=== PATIENT | male | born 1990 | race Caucasian/White ===

== ENCOUNTER 2017-12-06 14:18 | Emergency (ER) | payer OTHER ==
[~2017-12-06] VITALS: Ht 175.3 cm; Wt 122.5 kg
[2017-12-06] MEDS ORDERED: ULTRAM 50MG TAB50 MG PO (15:30)
[2017-12-06] MEDS ORDERED: CLOTRIMAZOLE10 GM TOP (15:30)
== END 2017-12-06 15:30 | disposition home or self-care (01) ==
LOC: ER 14:18
DX: S09.8XXA Other specified injuries of head, initial encounter (principal); B35.3 Tinea pedis; F17.210 Nicotine dependence, cigarettes, uncomplicated; W01.0XXA Fall on same level from slipping, tripping and stumbling without subsequent striking against object, initial encounter; Y93.89 Activity, other specified; Y92.89 Other specified places as the place of occurrence of the external cause; Y99.8 Other external cause status

== ENCOUNTER 2018-10-10 10:32 | Emergency (ER) | payer OTHER ==
[~2018-10-10] VITALS: Ht 175.3 cm; Wt 113.4 kg
[~2018-10-10 10:32] MED LIST: CLOTRIMAZOLE10 GM TOP; ULTRAM 50MG TAB50 MG PO
[2018-10-10 11:30] LABS: BASOPHILS 1.5 % (0.0-2.0); HEMATOCRIT 43.2 % (42.0-52.0); LYMPHOCYTES 35.6 % (24.0-44.0); MCH 32.6 pg (26.0-34.0); MCHC 34.6 g/dL (28.0-37.0); MCV 94.1 fL (80.0-100.0); MONOCYTES 6.7 % (1.0-8.0); PLATELET COUNT 184 thou/uL (150-400); POLYS 54.2 % (36.0-66.0); RBC 4.59 mil/uL (4.50-6.00); RDW 13.5 % (10.5-14.5); WBC 7.3 thou/uL (4.0-11.0)
[2018-10-10 11:36] LABS: POTASSIUM 3.5 mmol/L (3.5-5.1)
[2018-10-10 12:07] VITALS: BP 138/74
== END 2018-10-10 12:10 | disposition home or self-care (01) ==
LOC: ER 10:32
PROVIDERS: Physician Assistant
DX: T33.822A Superficial frostbite of left foot, initial encounter (principal); T33.821A Superficial frostbite of right foot, initial encounter; F17.210 Nicotine dependence, cigarettes, uncomplicated; X31.XXXA Exposure to excessive natural cold, initial encounter; Y93.89 Activity, other specified; Y92.89 Other specified places as the place of occurrence of the external cause; Y99.8 Other external cause status